=== PATIENT | female | born 1990 | race African-American/Black ===

== ENCOUNTER 2021-05-31 00:36 | Emergency (ER) | payer OTHER ==
[~2021-05-31] VITALS: Ht 170.2 cm; Wt 83.9 kg
[2021-05-31] MEDS ORDERED: NOHOMEMEDICATIONS (00:47)
[2021-05-31] MEDS ORDERED: PROAIR HFA8.5 GM INH (00:47)
[2021-05-31 02:22] VITALS: BP 112/66
[2021-06-01] MEDS ORDERED: CEPHALEXIN500 MG PO (11:14)
== END 2021-05-31 02:21 | disposition home or self-care (01) ==
LOC: ER 00:36
DX: S61.421A Laceration with foreign body of right hand, initial encounter (principal); Z79.51 Long term (current) use of inhaled steroids; W01.110A Fall on same level from slipping, tripping and stumbling with subsequent striking against sharp glass, initial encounter; Y93.89 Activity, other specified; Y92.89 Other specified places as the place of occurrence of the external cause; Y99.8 Other external cause status

== ENCOUNTER 2021-06-01 09:37 | Emergency (ER) | payer OTHER ==
[~2021-06-01] VITALS: Ht 170.2 cm; Wt 83.9 kg
[~2021-06-01 09:37] MED LIST: NOHOMEMEDICATIONS; PROAIR HFA8.5 GM INH
[2021-06-01 09:41] VITALS: BP 124/46
[2021-06-01] MEDS ORDERED: CEPHALEXIN500 MG PO (11:14)
== END 2021-06-01 11:35 | disposition home or self-care (01) ==
LOC: ER 09:37
DX: M79.89 Other specified soft tissue disorders (principal); M79.641 Pain in right hand; Z79.51 Long term (current) use of inhaled steroids